=== PATIENT | female | born 2000 | race Two or more races ===

== ENCOUNTER 2019-08-31 13:55 | Outpatient (CLI) | payer OTHER ==
[2019-08-31 14:38] LABS: APPEARANCE,URINE SLIGHTLY-CLOUDY; BILIRUBIN,URINE NEGATIVE (NEGATIVE); COLOR,URINE YELLOW; GLUCOSE, URINE NEGATIVE (NEGATIVE); KETONES,URINE NEGATIVE (NEGATIVE); LEUKOCYTE ESTERASE,URINE SMALL (NEGATIVE); NITRITE,URINE NEGATIVE (NEGATIVE); PROTEIN,URINE NEGATIVE (NEGATIVE); URINE SPECIFIC GRAVITY 1.002; UROBILINOGEN,URINE NEGATIVE mg/dL (<2.0)
[2019-08-31] MEDS ORDERED: HYDROXYZINE PAMOATE 50 MG CAPSULE PO ONE (14:44)
[2019-08-31] MEDS ORDERED: RINGERS SOLUTION,LACTATED 1,000 ML IV PRN (14:45)
[2019-08-31] MEDS ORDERED: HYDROXYZINE PAMOATE 50 MG CAPSULE ONE (14:47)
[2019-08-31 14:59] LABS: URINE AMPHETAMINES SCREEN NEGATIVE; URINE BARBITURATES SCREEN NEGATIVE; URINE BENZODIAZEPINES SCREEN NEGATIVE; URINE COCAINE SCREEN NEGATIVE; URINE MARIJUANA (THC) SCREEN NEGATIVE; URINE METHADONE SCREEN NEGATIVE; URINE PHENCYCLIDINE SCREEN NEGATIVE
--- NOTE | 2019-08-31 16:39 | RADIOLOGY REPORT (SQ) ---
EXAM DESCRIPTION: U/S OB LIMITED COMPLETED DATE/TIME: 08/31/2019 3:43 pm REASON FOR STUDY: contractions COMPARISON: None. TECHNIQUE: Limited transabdominal grayscale ultrasound for evaluation of specific requested obstetri phyllis parameters. LIMITATIONS: None. FINDINGS: CERVICAL LENGTH: 3.2 cm. Closed. LYNN: 9 cm. FHR: 160 beats per minute. PRESENTATION: Breech. PLACENTA: Anterior. Venous Michelle is present. ANATOMY: Not assessed OTHER: No other significant findings. IMPRESSION: LIMITED OBSTETRICAL ULTRASOUND WITH MEASURED PARAMETERS DELINEATED ABOVE. Trimester of : 32 weeks 4 days. TECHNICAL DOCUMENTATION: JOB ID: [id number] [employer]- All Rights Reserved Reading location - IP/workstation name: [email or web address]
== END 2019-08-31 16:54 | disposition home or self-care (01) ==
LOC: LC 13:55
PROVIDERS: ATTEND Obstetrics & Gynecology
PROC: 4A1HXCZ Monitoring of Products of Conception, Cardiac Rate, External Approach (ICD-10-PCS; principal; 2019-08-31)
DX: O47.03 False labor before 37 completed weeks of gestation, third trimester (principal); Z3A.32 32 weeks gestation of pregnancy
CPT/HCPCS: 76815; 80307; 81001

== ENCOUNTER → 2019-09-17 | Outpatient (CLI) | payer OTHER ==
[2019-09-17 12:00] LABS: APPEARANCE,URINE SLIGHTLY-CLOUDY; BILIRUBIN,URINE NEGATIVE (NEGATIVE); COLOR,URINE STRAW; GLUCOSE, URINE NEGATIVE (NEGATIVE); KETONES,URINE NEGATIVE (NEGATIVE); LEUKOCYTE ESTERASE,URINE SMALL (NEGATIVE); NITRITE,URINE NEGATIVE (NEGATIVE); PROTEIN,URINE NEGATIVE (NEGATIVE); URINE SPECIFIC GRAVITY 1.004; UROBILINOGEN,URINE NEGATIVE mg/dL (<2.0)
[2019-09-17 12:18] LABS: URINE AMPHETAMINES SCREEN NEGATIVE; URINE BARBITURATES SCREEN NEGATIVE; URINE BENZODIAZEPINES SCREEN NEGATIVE; URINE COCAINE SCREEN NEGATIVE; URINE MARIJUANA (THC) SCREEN NEGATIVE; URINE METHADONE SCREEN NEGATIVE; URINE PHENCYCLIDINE SCREEN NEGATIVE
== END ==
LOC: LC 11:24
PROVIDERS: ATTEND Obstetrics & Gynecology
PROC: 4A1HXCZ Monitoring of Products of Conception, Cardiac Rate, External Approach (ICD-10-PCS; principal; 2019-09-17)
DX: Z34.93 Encounter for supervision of normal pregnancy, unspecified, third trimester (principal); Z3A.34 34 weeks gestation of pregnancy
CPT/HCPCS: 80307; 81001

== ENCOUNTER 2019-10-21 03:28 | Inpatient (IN) | payer OTHER ==
[2019-10-20 11:15] LABS: ABSOLUTE LYMPHOCYTES (AUTO) 1.4 10^3/uL (0.5-4.7); ABSOLUTE MONOCYTES (AUTO) 0.6 10^3/uL (0.1-1.4); ABSOLUTE NEUT (AUTO) 5.5 10^3/uL (1.7-8.2); BASOPHILS % (AUTO) 0.4 % (0-2); EOSINOPHILS % (AUTO) 0.5 % (0-6); HEMATOCRIT 35.2 % (36.0-47.0); HEMOGLOBIN 11.4 g/dL (12.0-15.5); LYMPHOCYTES % (AUTO) 18.9 % (13-45); MEAN CORPUSCULAR HEMOGLOBIN 25.4 pg (27.0-33.4); MEAN CORPUSCULAR HGB CONC 32.3 g/dL (32.0-36.0); MEAN CORPUSCULAR VOLUME 79 fl (80-97); MONOCYTES % (AUTO) 7.8 % (3-13); PLATELET COUNT 160 10^3/uL (150-450); RED BLOOD COUNT 4.47 10^6/uL (3.72-5.28); SEGMENTED NEUTROPHILS % (AUTO) 72.4 % (42-78); TOTAL CELLS COUNTED % (AUTO) 100 %; WHITE BLOOD COUNT 7.6 10^3/uL (4.0-10.5)
[2019-10-20 11:17] LABS: APPEARANCE,URINE SLIGHTLY-CLOUDY; BILIRUBIN,URINE NEGATIVE (NEGATIVE); COLOR,URINE YELLOW; GLUCOSE, URINE NEGATIVE (NEGATIVE); KETONES,URINE NEGATIVE (NEGATIVE); LEUKOCYTE ESTERASE,URINE NEGATIVE (NEGATIVE); NITRITE,URINE NEGATIVE (NEGATIVE); PROTEIN,URINE NEGATIVE (NEGATIVE); URINE SPECIFIC GRAVITY 1.023; UROBILINOGEN,URINE NEGATIVE mg/dL (<2.0)
[2019-10-20 11:30] LABS: URINE AMPHETAMINES SCREEN NEGATIVE; URINE BARBITURATES SCREEN NEGATIVE; URINE BENZODIAZEPINES SCREEN NEGATIVE; URINE COCAINE SCREEN NEGATIVE; URINE MARIJUANA (THC) SCREEN NEGATIVE; URINE METHADONE SCREEN NEGATIVE; URINE PHENCYCLIDINE SCREEN NEGATIVE
[2019-10-21] MEDS ORDERED: RINGERS SOLUTION,LACTATED 1,000 ML IV PRN (03:40)
[2019-10-21] MEDS ORDERED: RINGERS SOLUTION,LACTATED 1,000 ML IV ONE (04:00)
[2019-10-21 04:04] LABS: ABSOLUTE EOSINOPHILS # (AUTO) 0.1 10^3/uL (0.0-0.6); ABSOLUTE LYMPHOCYTES (AUTO) 1.9 10^3/uL (0.5-4.7); ABSOLUTE MONOCYTES (AUTO) 0.7 10^3/uL (0.1-1.4); ABSOLUTE NEUT (AUTO) 4.9 10^3/uL (1.7-8.2); BASOPHILS % (AUTO) 0.4 % (0-2); EOSINOPHILS % (AUTO) 0.8 % (0-6); HEMATOCRIT 34.3 % (36.0-47.0); HEMOGLOBIN 11.4 g/dL (12.0-15.5); LYMPHOCYTES % (AUTO) 25.1 % (13-45); MEAN CORPUSCULAR HEMOGLOBIN 25.9 pg (27.0-33.4); MEAN CORPUSCULAR HGB CONC 33.1 g/dL (32.0-36.0); MEAN CORPUSCULAR VOLUME 78 fl (80-97); MONOCYTES % (AUTO) 9.3 % (3-13); PLATELET COUNT 166 10^3/uL (150-450); RED BLOOD COUNT 4.39 10^6/uL (3.72-5.28); RED CELL DISTRIBUTION WIDTH 18.4 % (11.5-14.0); SEGMENTED NEUTROPHILS % (AUTO) 64.4 % (42-78); TOTAL CELLS COUNTED % (AUTO) 100 %; WHITE BLOOD COUNT 7.6 10^3/uL (4.0-10.5)
--- NOTE | 2019-10-21 06:52 | Admission Physical ---
Datetime Report Generated by CPN: 10/21/2019 06:51 CURRENT ADMISSION Chief Complaint: Uterine Contractions; Suspected Ruptured Membranes Admit Impression : Term, Intrauterine ; Ruptured Membranes; Repeat Section Admit Plan: Admit to Unit; Initiate Section Protocol ALLERGIES Medication Allergies: Yes Medication Allergies: Penicillins (10/21/2019) Latex: No Latex Allergies Food Allergies: none Environmental Allergies: none OBSTETRICAL HISTORY EDC: 10/29/2019 00:00 : 2 Para: 1 Cesareans: 1 Gestational Diabetes: No Rh Sensitization: No Incompetent Cervix: No URBAN: No Infertility: No ART Treatment: No Uterine Anomaly: No IUGR: No Hx Previous C/S: Yes Macrosomia: No Hx Loss/Stillborn: No PIH: No Hx : No Placenta Previa/Abruption: No Depression/PP Depression: No PTL/PROM: No Post Hemorrhage: No Current Procedures: Ultrasound; NST Obstetrical History Comments: G1- 38.0 primary c section G2- Current SEE RECORDS Alcohol: No Marijuana : No Cocaine: No Other Illicit Drugs: No Cigarettes: Never Smoker. [id number] MEDICAL HISTORY Diabetes: No Blood Transfusion: No Pulmonary Disease (Asthma, TB): Yes Breast Disease: No Hypertension: No Data Warehouse Manager Surgery: No Heart Disease: No Hosp/Surgery: Yes Autoimmune Disorder: No Anesthetic Complications: No Kidney Disease: No Abnormal Pap Smear: No Neuro/Epilepsy: No Psychiatric Disorders: No Other Medical Diseases: No Hepatitis/Liver Disease: No Significant Family History: No Varicosities/Phlebitis: No Trauma/Violence : No Thyroid Dysfunction: No Medical History Comments: Asthma, c section INFECTIOUS HISTORY Gonorrhea: No Genital Herpes: No Chlamydia: No Tuberculosis: No Syphilis: No Hepatitis: No HIV/AIDS Exposure: No Rash or Viral Illness: No HPV: No PHYSICAL EXAM General: Normal HEENT: Normal Neurologic: Normal Thyroid: Normal Heart: Normal Lungs: Normal Breast: Normal Back: Normal Abdomen: Normal Genitourinary Exam: Normal Extremities: Normal DTRs: Normal Pelvic Type: Adequate Vital Signs: Reviewed; Within Normal Limits VAGINAL EXAM Dilatation: 1 Effacement: 30 Station: -3 Contraction Comments: irregular MEMBRANES Pooling: Positive Membranes: Ruptured FETUS A EGA: 38.6 Monitoring: External US FHR- Baseline: 140 Variability: Moderate 6-25bpm Accelerations: 15X15 Decelerations: None FHR Category: Category I Presentation: Vertex Admit Comment: at 38.6 wks EGA with SROM at 0300. Arrive here 2-3 hrs later -Positive ROM verified -Admit to LDR -NPO and IVFs. Nothing to eat or drink since 1900 yesterdat -Ancef 2 gms IV prior to OR -Abdominal prep -Prior CS x1, plan repeat CS -risks, benefits, alternatives reviewed. Consent signed -Plan repeat section. Pt desires to wait if painful contractions do not start until her family arrives. Right now she is one cm dilated, baby looks good-cat 1 NST. Will plan RCS for later this am PLANS FOR LABOR AND DELIVERY Labor and Delivery: None Feeding Preference: Breast Benefit of Breast Feed Discussed: Yes Circumcision: No INFORMED CONSENT Informed Consent Obtained: Section Delivery; Risks, Benefits and Alternatives Discussed Signature: with User ID: Ana Cristina : with User ID: Ana Cristina
[2019-10-21] MEDS ORDERED: TERBUTALINE SULFATE INJ/PF 1 MG/1 ML SDV SUBCUT ONE (07:40)
[2019-10-21] MEDS ORDERED: TERBUTALINE SULFATE INJ/PF 1 MG/1 ML SDV ONE (07:42)
[2019-10-21] MEDS ORDERED: CEFAZOLIN INJ 1 GM VIAL ONE (08:45)
[2019-10-21] MEDS ORDERED: FENTANYL CITRATE INJ/PF 100 MCG/2 ML AMPUL ONE ×2 (09:58→13:15)
[2019-10-21] MEDS ORDERED: KETOROLAC TROMETHAMINE INJ/PF 30 MG/1 ML SDV ONE (09:58)
[2019-10-21] MEDS ORDERED: OXYTOCIN 10 UNIT/ML VIAL ONE (09:58)
[2019-10-21] MEDS ORDERED: MIDAZOLAM 2 MG/2 ML INJ ONE (09:59)
[2019-10-21] MEDS ORDERED: PHENYLEPHRINE HCL INJ/PF 10 MG/1 ML SDV ONE (09:59)
[2019-10-21] MEDS ORDERED: EPHEDRINE SULFATE INJ 50 MG/1 ML AMPULE ONE (09:59)
[2019-10-21] MEDS ORDERED: OXYTOCIN/NORMAL SALINE 20 UNIT/1,000 ML RTUINJ ONE (09:59)
[2019-10-21] MEDS ORDERED: ONDANSETRON HCL INJ/PF 4 MG/2 ML SDV ONE (09:59)
[2019-10-21] MEDS ORDERED: ACETAMINOPHEN 1,000 MG/100 ML RTUPB IV ONE (09:59)
[2019-10-21] MEDS ORDERED: GLUCAGON,HUMAN RECOMB 1 MG INJ SUBCUT PRN (10:02)
[2019-10-21] MEDS ORDERED: DEXTROSE 40% GEL 15 GM TUBE PO PRN ×2 (10:02)
[2019-10-21] MEDS ORDERED: DEXTROSE 50%-WATER 25 GM/50 ML DISP.SYRIN IV PRN ×2 (10:02)
[2019-10-21] MEDS ORDERED: AZITHROMYCIN 500 MG in DEXTROSE 5%-WATER 250 ML IV PRN (10:05)
[2019-10-21] MEDS ORDERED: CLINDAMYCIN PHOSPHATE INJ 300 MG/2 ML SDV IV ONE (10:05)
[2019-10-21] MEDS ORDERED: CLINDAMYCIN 900 MG/D5W RTU 900 MG/50 ML RTUPB IV ONE ×2 (10:08→10:15)
[2019-10-21] MEDS ORDERED: AZITHROMYCIN INJ 500 MG VIAL IV ONE (10:08)
[2019-10-21] MEDS ORDERED: MISOPROSTOL 0.2 MG TABLET ONE (10:53)
[2019-10-21] MEDS ORDERED: DIPHENHYDRAMINE HCL 50 MG/ML VIAL IV PRN (11:07)
[2019-10-21] MEDS ORDERED: OXYCODONE-ACETAMINOPHEN 5-325 MG TABLET PO PRN ×3 (11:07→11:38)
[2019-10-21] MEDS ORDERED: FENTANYL CITRATE INJ/PF 100 MCG/2 ML AMPUL IV PRN ×3 (11:07)
[2019-10-21] MEDS ORDERED: ONDANSETRON HCL INJ/PF 4 MG/2 ML SDV IV PRN (11:07)
[2019-10-21] MEDS ORDERED: PROMETHAZINE HCL INJ 25 MG/1 ML VIAL IV PRN ×2 (11:07→11:38)
[2019-10-21] MEDS ORDERED: MEPERIDINE HCL/PF INJ 25 MG/1 ML DISP.SYRIN IV PRN (11:07)
[2019-10-21] MEDS ORDERED: MORPHINE SULFATE 10 MG/ML INJ IV PRN (11:07)
[2019-10-21] MEDS ORDERED: ACETAMINOPHEN 325 MG TABLET PO PRN (11:38)
[2019-10-21] MEDS ORDERED: SIMETHICONE 80 MG TAB.CHEW PO PRN (11:38)
[2019-10-21] MEDS ORDERED: DIPH/PERTUSS(ACELL)/TETANUS VAC/PF 0.5 ML SYR (>=10YO) IM PRN (11:38)
[2019-10-21] MEDS ORDERED: MEASLES,MUMPS&RUBELLA VACC/PF 0.5 ML VIAL SUBCUT PRN (11:38)
[2019-10-21] MEDS ORDERED: HYDROMORPHONE HCL INJ/PF 2 MG/ML AMPULE IV PRN (11:38)
[2019-10-21] MEDS ORDERED: OXYTOCIN/NORMAL SALINE 20 UNIT/1,000 ML RTUINJ IV PRN (11:38)
[2019-10-21] MEDS ORDERED: ACETAMINOPHEN 1,000 MG/100 ML RTUPB IV PRN (11:38)
--- NOTE | 2019-10-21 11:43 | Brief Operative Note ---
BRIEF OPERATIVE REPORT DATE OF SURGERY: 10/21/19 TIME OF SURGERY: 10:45 PREOPERATIVE DIAGNOSIS: History of section, 38+6ega, Early labor, SROM, hypertrophic scar POSTOPERATIVE DIAGNOSIS: KATHLEEN - delivered, Complete Breech SURGEON: WANG SOLIS FINDINGS: VMI delivered at 10:51, Complete breech presentation. Weight 6#15oz, Loose nuchal cord x1. QBL 590ml. IVF 1300ml, UOP 350ml COMPLICATIONS: None ESTIMATED BLOOD LOSS: 600ml TISSUE REMOVED OR ALTERED: placenta and cord not sent to pathology TECHNICAL PROCEDURE: Repeat section, scar revision.
--- NOTE | 2019-10-21 12:48 | Delivery Summary ---
Del Sum A-C Datetime Report Generated by CPN: 10/21/2019 12:48 DELIVERY PERSONNEL DELIVERY PERSONNEL: [id number] Delivery Doctor:: Manuela Maradiaga MD Anesthesiologist:: Loyd Alcala MD SHIP LABORER:: Hetal Edouard SHIP LABORER Check Weigher:: Stephanie Tai RN Neonatal Nurse Practitioner:: MOE [place] Nursery Nurse:: Maki Mchugh RN Photoengraving Printer/FACILITIES MANAGEMENT EXECUTIVE: ST Neft[employer] Photoengraving Printer/FACILITIES MANAGEMENT EXECUTIVE: Gem Langford, DIE FORGER MATERNAL INFORMATION Delivery Anesthesia: Spinal Medications After Delivery: Pitocin Bolus-Please Comment; Pitocin Drip 20 Units/1000ml NSS; Cytotec 1000mcg Per Rectum/Vagina Meds After Delivery Comment: 20 UNITS/1000 ML NS Delivery QBL: 590 Maternal Complications: Premature Rupture of Membranes LABOR SUMMARY EDC: 10/29/2019 00:00 No. Babies in Womb: 1 Attempted: No Labor Anesthesia: None LABOR INFORMATION Reason for Induction: Not Applicable Other Ripening Agents: n/a Oxytocin: N/A Group B Beta Strep: negative Antibiotics # of Doses: n/a Antibiotics Time of Last Dose: n/a Name of Antibiotic Given: n/a Steroids Given: None Reason Steroids Not Administered: Not Applicable MEMBRANES Membranes Rupture Method: Spontaneous Rupture of Membranes: 10/21/2019 03:10 Length of Rupture (hr): 7.68 Amniotic Fluid Color: Clear Amniotic Fluid Amount: Moderate Amniotic Fluid Odor: Normal STAGES OF LABOR Stage 3 hr: 0 Stage 3 min: 1 VAGINAL DELIVERY Episiotomy: None Laceration #1: None Laceration Extension #1: N/A Laceration Repair: Not Applicable Sponge Count Correct: N/A Sharps Count Correct: N/A CSECTION DELIVERY Primary Indication: Repeat Elective Other Secondary Indication: SROM CSection Urgency: Non-Scheduled CSection Incidence: Repeat Labor: No Labor Elective: Elective CSection Incision: Lower Uterine Transverse BABY A INFORMATION Delivery Date/Time: 10/21/2019 10:51 Method of Delivery: Nurse Controlled Delivery: No Born in Route : No : N/A Forceps: N/A Vacuum Extraction: N/A Shoulder Dystocia : No PRESENTATION/POSITION BABY A Presentation: Breech Breech Presentation: Complete PLACENTA INFORMATION BABY A Placenta Delivery Time : 10/21/2019 10:52 Placenta Method of Delivery: Manual Removal Placenta Status: Delivered SCORES BABY A Heart Rate 1 min: >100 bpm Resp Effort 1 min: Slow, Irregular Reflex Irritability 1 min: Cough or Sneeze or Pulls Away Muscle Tone 1 min: Some Flexion of Extremities Color 1 min: Body [place], Extremities Blue Resuscitation Effort 1 min: Tactile Stimulation; PPV/NCPAP SCORE 1 MIN: 7 Heart Rate 5 min: >100 bpm Resp Effort 5 min: Good Cry Reflex Irritability 5 min: Cough or Sneeze or Pulls Away Muscle Tone 5 min: Active Motion Color 5 min: Body [place], Extremities Blue Resuscitation Effort 5 min: Tactile Stimulation SCORE 5 MIN: 9 INFORMATION BABY A Gestational Age at Delivery: 38.6 Gestational Status: Early Term- 37- 38.6 Weeks Infant Outcome : Liveborn Condition : Stable Sex: Male IDENTIFICATION BABY A Infant Verification Date/Time: 10/21/2019 10:53 ID Band Number: [id number] Mother's Name Verified: Yes RN Verifying : Barbara, RN/Maki Mchugh, RN WEIGHT/LENGTH BABY A Infant Birthweight (gm): 3150 Infant Weight (lb): 6 Weight (oz): 15 Length (in): 19.50 Length (cm): 49.53 CORD INFORMATION BABY A No. Cord Vessels: 3 Nuchal Cord : Around Neck x1, Tight Cord Blood Taken: No-Annotate Suction: Mouth; Nose ASSESSMENT BABY A Skin to Skin: No Skin to Skin Time (min): 0 BABY B INFORMATION : N/A
[2019-10-21] MEDS: DOCUSATE SODIUM 100 MG CAPSULE PO SCH (17:43)
[2019-10-21] MEDS: KETOROLAC TROMETHAMINE INJ/PF 30 MG/1 ML SDV IV SCH (17:43)
[2019-10-22] MEDS: OXYCODONE-ACETAMINOPHEN 5-325 MG TABLET PO PRN ×4 (00:09→21:10)
[2019-10-22] MEDS: KETOROLAC TROMETHAMINE INJ/PF 30 MG/1 ML SDV IV SCH ×2 (03:22→10:07)
[2019-10-22 07:36] LABS: HEMATOCRIT 29.6 % (36.0-47.0); HEMOGLOBIN 9.7 g/dL (12.0-15.5); MEAN CORPUSCULAR HEMOGLOBIN 25.5 pg (27.0-33.4); MEAN CORPUSCULAR HGB CONC 32.7 g/dL (32.0-36.0); MEAN CORPUSCULAR VOLUME 78 fl (80-97); PLATELET COUNT 175 10^3/uL (150-450); RED CELL DISTRIBUTION WIDTH 18.1 % (11.5-14.0); WHITE BLOOD COUNT 11.3 10^3/uL (4.0-10.5)
[2019-10-22] MEDS: IBUPROFEN 800 MG TABLET PO SCH ×3 (08:39→21:04)
--- NOTE | 2019-10-22 09:43 | PDOC PROGRESS REPORT ---
Subjective-OB Progress Note for:: 10/22/19 Subjective: Doing well, OOB, voiding, pain under control, scant bleeding, family at BS, eating well Physical Exam (OB) Vital Signs: Temp Pulse Resp BP Pulse Ox 98.0 F 86 17 113/70 97 10/22/19 07:39 10/22/19 07:39 10/22/19 07:39 10/22/19 07:39 10/22/19 07:39 Intake & Output 10/21/19 10/22/19 10/23/19 06:59 06:59 06:59 Intake Total 300 Output Total 2800 Balance -2500 Weight 60.1 kg - PIH/Pre-Eclampsia Clonus: Negative Headache: Absent Epigastric Pain: No Visual Changes: No - Dressing Removed: No Incision: Dressing Closure Type: pressure - Lochia Lochia Amount: Small 10-25 ml Lochia Color: Rubra/Red - Abdomen Description: Soft Hernia Present: No Fundal Description: Firm, Midline Fundal Height: u/u - u/2 Objective-Diagnostic Laboratory: 10/22/19 07:10 10/20/19 10/22/19 10:30 07:10 WBC 11.3 H RBC 3.80 Hgb 9.7 L Hct 29.6 L MCV 78 L MCH 25.5 L MCHC 32.7 RDW 18.1 H Plt Count 175 Blood Type O POSITIVE Antibody Screen NEGATIVE Assessment and Plan(PN) - Assessment and Plan (1) Status post repeat low transverse section Is this a current diagnosis for this admission?: Yes (2) Breech presentation delivered Is this a current diagnosis for this admission?: Yes (3) Spontaneous rupture of membranes Is this a current diagnosis for this admission?: Yes (4) History of section Is this a current diagnosis for this admission?: Yes - Time Spent with Patient Time with patient: Less than 15 minutes Medications reviewed and adjusted accordingly: Yes - Disposition Anticipated Discharge: Home Within: within 24 hours
[2019-10-22] MEDS: PRENATAL VITAMIN W DHA CAPSULE PO SCH (10:06)
[2019-10-22] MEDS: DOCUSATE SODIUM 100 MG CAPSULE PO SCH ×2 (10:06→17:42)
[2019-10-23] MEDS: OXYCODONE-ACETAMINOPHEN 5-325 MG TABLET PO PRN ×2 (03:08→08:48)
[2019-10-23] MEDS: IBUPROFEN 800 MG TABLET PO SCH ×2 (05:36→09:53)
--- NOTE | 2019-10-23 09:38 | PDOC DISCHARGE SUMMARY ---
Impression - Admit/DC Date/PCP Admission Date/Primary Care Provider: 10/21/19 05:42 KATRIN SKINNER MD Discharge Date: 10/23/19 - POD #2, doing well, no complaints. O+, Rubella Immune, . - Discharge Diagnosis (1) Breech presentation delivered Is this a current diagnosis for this admission?: Yes (2) History of section Is this a current diagnosis for this admission?: Yes (3) Spontaneous rupture of membranes Is this a current diagnosis for this admission?: Yes (4) Status post repeat low transverse section Is this a current diagnosis for this admission?: Yes - Additional Information Resuscitation Status: Full Code Discharge Diet: As Tolerated, Regular Discharge Activity: Activity As Tolerated, No Driving, No Lifting Over 10 Pounds, Pelvic Rest Referrals: KATRIN SKINNER MD [Primary Care Provider] - Prescriptions: Ferrous Sulfate [Feosol 325 mg Tablet] 325 mg PO DAILY #30 tab Ibuprofen [Motrin 800 mg Tablet] 800 mg PO Q6A #60 tablet Oxycodone HCl/Acetaminophen [Percocet 5-325 mg Tablet] 1 tab PO Q4HP PRN #30 tablet PRN Reason: Pain Scale Of 4 Home Medications: Vits96/Iron Fum/Folic [ Tablet] 1 tab PO DAILY 08/31/19 Ferrous Sulfate [Feosol 325 mg Tablet] 325 mg PO DAILY #30 tab 10/23/19 Ibuprofen [Motrin 800 mg Tablet] 800 mg PO Q6A #60 tablet 10/23/19 Oxycodone HCl/Acetaminophen [Percocet 5-325 mg Tablet] 1 tab PO Q4HP PRN #30 tablet 10/23/19 HPI Reason(s) for Admission: Ceasarean Section-Repeat Procedures: Ultrasound Intrapartum Procedure(s): : Low Cervical, Transverse Hospital Course Hospital Course: routine Results Laboratory Results: WBC 11.3 10^3/uL (4.0-10.5) H 10/22/19 07:10 RBC 3.80 10^6/uL (3.72-5.28) 10/22/19 07:10 Hgb 9.7 g/dL (12.0-15.5) L 10/22/19 07:10 Hct 29.6 % (36.0-47.0) L 10/22/19 07:10 MCV 78 fl (80-97) L 10/22/19 07:10 MCH 25.5 pg (27.0-33.4) L 10/22/19 07:10 MCHC 32.7 g/dL (32.0-36.0) 10/22/19 07:10 RDW 18.1 % (11.5-14.0) H 10/22/19 07:10 Plt Count 175 10^3/uL (150-450) 10/22/19 07:10 Lymph % (Auto) 25.1 % (13-45) 10/21/19 03:57 [place] % (Auto) 9.3 % (3-13) 10/21/19 03:57 Eos % (Auto) 0.8 % (0-6) 10/21/19 03:57 Baso % (Auto) 0.4 % (0-2) 10/21/19 03:57 Absolute Neuts (auto) 4.9 10^3/uL (1.7-8.2) 10/21/19 03:57 Absolute Lymphs (auto) 1.9 10^3/uL (0.5-4.7) 10/21/19 03:57 Absolute Monos (auto) 0.7 10^3/uL (0.1-1.4) 10/21/19 03:57 Absolute Eos (auto) 0.1 10^3/uL (0.0-0.6) 10/21/19 03:57 Absolute Basos (auto) 0.0 10^3/uL (0.0-0.2) 10/21/19 03:57 Seg Neutrophils % 64.4 % (42-78) 10/21/19 03:57 Urine Color YELLOW 10/20/19 10:30 Urine Appearance SLIGHTLY-CLOUDY 10/20/19 10:30 Urine pH 6.0 (5.0-9.0) 10/20/19 10:30 Ur Specific [place] 1.023 10/20/19 10:30 Urine Protein NEGATIVE mg/dL (NEGATIVE) 10/20/19 10:30 Urine Glucose (UA) NEGATIVE mg/dL (NEGATIVE) 10/20/19 10:30 Urine Ketones NEGATIVE mg/dL (NEGATIVE) 10/20/19 10:30 Urine Blood NEGATIVE (NEGATIVE) 10/20/19 10:30 Urine Nitrite NEGATIVE (NEGATIVE) 10/20/19 10:30 Urine Bilirubin NEGATIVE (NEGATIVE) 10/20/19 10:30 Urine Urobilinogen NEGATIVE mg/dL (<2.0) 10/20/19 10:30 Ur Leukocyte Esterase NEGATIVE (NEGATIVE) 10/20/19 10:30 Urine WBC (Auto) 2 /HPF 10/20/19 10:30 Urine RBC (Auto) 0 /HPF 10/20/19 10:30 U Hyaline Cast (Auto) 1 /LPF 10/20/19 10:30 Squamous Epi Cells Auto 13 /HPF 10/20/19 10:30 Urine Mucus (Auto) FEW /LPF 10/20/19 10:30 Urine Ascorbic Acid NEGATIVE (NEGATIVE) 10/20/19 10:30 Urine Opiates Screen NEGATIVE 10/20/19 10:30 Urine Methadone Screen NEGATIVE 10/20/19 10:30 Ur Barbiturates Screen NEGATIVE 10/20/19 10:30 Ur Phencyclidine Scrn NEGATIVE 10/20/19 10:30 Ur Amphetamines Screen NEGATIVE 10/20/19 10:30 U Benzodiazepines Scrn NEGATIVE 10/20/19 10:30 Urine Cocaine Screen NEGATIVE 10/20/19 10:30 U Marijuana (THC) Screen NEGATIVE 10/20/19 10:30 RPR NONREACTIVE (NONREACTIVE) 10/21/19 03:57 Blood Type O POSITIVE 10/20/19 10:30 Antibody Screen NEGATIVE 10/20/19 10:30 Plan Plan of Treatment: D/c to home. f/up with [facility] in one week
[2019-10-23] MEDS: PRENATAL VITAMIN W DHA CAPSULE PO SCH (09:53)
[2019-10-23] MEDS: DOCUSATE SODIUM 100 MG CAPSULE PO SCH (09:53)
[2019-10-23 11:43] VITALS: BP 115/71
--- NOTE | 2019-10-28 07:11 | Operative Report ---
Operative Report DATE OF SURGERY: 10/21/19 PREOPERATIVE DIAGNOSIS: History of section x 1, 38+6ega, Early labor, SROM, hypertrophic scar POSTOPERATIVE DIAGNOSIS: KATHLEEN - complete breech OPERATION: Repeat Cescarean section, Scar Revision SURGEON: WANG SOLIS ANESTHESIA: Spinal TISSUE REMOVED OR ALTERED: placenta and cord COMPLICATIONS: none ESTIMATED BLOOD LOSS: 600ml QUANTITATIVE BLOOD LOSS: 590 INTRAOPERATIVE FINDINGS: VMI delivered at 10:51, Complete breech presentation. Weight 6#15oz, Loose nuchal cord x1. QBL 590ml. IVF 1300ml, UOP 350ml, Normal Bilateral tubes, ovaries, normal uterus PROCEDURE: Anesthesia provider: [Fredrick ZAMUDIO, Nguyễn Edouard CRNA] Urine output: [350ml] IV fluids: [1300ml] Indications: [19yo at 38+6ega with SROM at 0300 and presented to labor and delivery with positive SROM verified with actimprom. She has a prior histor y of section. She declines TOLAC and desires repeat section. Risks, benefits, alternatives were reviewed and she desires to proceed with planned procedure.] Procedure: The patient was taken to the operating room where spinal anesthesia was obtained and found to be adequate. She was then prepped and draped in the normal sterile fashion and placed in the dorsal supine position with a leftward tilt. A Pfannenstiel skin incision was then made and old scar removed and carried through to the underlying layers of the fascia with the scalpel. The fascia was incised in the midline and the incision extended laterally with the Bhandari scissors. The superior aspect of the fascial incision was then grasped with Blake clamps elevated and the underlying rectus muscles dissected off [bluntly]. Attention was then turned to the inferior aspect of the fascial incision which in a similar fashion was grasped, tented up with Blake clamps, and the rectus muscles dissected off [bluntly]. The rectus muscles were then in the midline and the peritoneum at the amount identified and entered [bluntly]. The peritoneal incision was then extended superiorly and inferiorly with good visualization of the bladder. The bladder blade was inserted and the vesicouterine peritoneum identified grasped with [place] pickups and entered sharply with the Metzenbaum scissors. This incision was then extended laterally with the Metzenbaum scissors and a bladder flap created digitally. The bladder blade was then reinserted and the lower uterine segment incised in a transverse fashion with the scalpel. The uterine incision was then extended bluntly. The bladder blade was removed and the infant was delivered from complete breech presentation atraumatically. The nose and mouth were suctioned and the cord doubly clamped and cut. And the infant was handed off to waiting pediatricians. The placenta was then delivered spontaneously and the uterus exteriorized and cleared of all clots and debris. The uterine incision was then repaired with 1- 0 Vicryl in a running locked fashion. A second layer of the same suture was used to obtain hemostasis via imbrication of the initial layer. The bladder flap was then repaired with 3-0 chromic in a running fashion. The uterus was returned to the patient's abdomen and Interceed was placed overlying the uterine incision to prevent adhesions. The gutters were cleared of all clots and debris. All operative sites were noted to be hemostatic. The fascia was reapproximated with 0 Vicryl in a running fashion from each lateral edge to the midline. The skin was closed with 3-0 Monocryl in a running subcuticular fashion with overlying Dermabond for additional dressing as well as wound closure. The patient tolerated the procedure well. Sponge lap needle and instrument counts are correct time 2. Clindamycin 900mg IV and Azithromycin 500mg were given prior to skin incision. The patient was taken to the recovery area awake and in stable condition.
== END 2019-10-23 14:00 | disposition home or self-care (01) | DRG 788 ==
LOC: LC 03:28 → LR 05:42 → 2S 13:55
PROVIDERS: ADMIT Obstetrics & Gynecology; ATTEND Obstetrics & Gynecology
PROC: 10D00Z1 Extraction of Products of Conception, Low, Open Approach (ICD-10-PCS; principal; 2019-10-21)
DX: O32.1XX0 Maternal care for breech presentation, not applicable or unspecified (principal); N85.8 Other specified noninflammatory disorders of uterus; O42.92 Full-term premature rupture of membranes, unspecified as to length of time between rupture and onset of labor; O69.81X0 Labor and delivery complicated by cord around neck, without compression, not applicable or unspecified; O34.211 Maternal care for low transverse scar from previous cesarean delivery; Z3A.38 38 weeks gestation of pregnancy; Z37.0 Single live birth; Z88.0 Allergy status to penicillin
CPT/HCPCS: 1961; 36415; 80307; 81001; 85025; 85027; 86592; 86850; 86900; 86901; 94760; 94799; J0131; J0456; J0690; J1170; J1885; J2250; J2370; J2405; J2590; J3010; J3105; J3490; J7060